=== PATIENT | female | born 1965 | race Caucasian/White ===

== ENCOUNTER 2021-02-09 17:02 | Inpatient (IN) | payer OTHER ==
[~2021-02-09] VITALS: Ht 155 cm; Wt 76.5 kg
[2021-02-09 18:03] LABS: HEMOGLOBIN 10.4 gm/dl (12.3-15.3); RED BLOOD COUNT 2.95 M/UL (4.00-5.10); WHITE BLOOD COUNT 9.2 K/UL (4.5-11.0)
[2021-02-09 18:33] LABS: BUN/CREATININE RATIO 11 (0-10)
[2021-02-09 21:10] LABS: BODY FLUID SOURCE PERITONEAL
[2021-02-09 21:11] LABS: MONONUCLEAR CELLS 64.6 (75-100); POLYMORPHONUCLEAR % 35.4 (0-25); RBC (AUTOMATED) 1700 (0-100000); WBC (AUTOMATED) 48 (0-500)
[2021-02-09 21:32] LABS: TOTAL PROTEIN, BODY FLUID 1.2 gm/dL
[2021-02-09 21:33] LABS: LDH, BODY FLUID 43 U/L
[2021-02-10 04:07] LABS: WHITE BLOOD COUNT 7.3 K/UL (4.5-11.0)
[2021-02-10 04:08] LABS: HEMOGLOBIN 8.2 gm/dl (12.3-15.3); RED BLOOD COUNT 2.37 M/UL (4.00-5.10)
[2021-02-10 09:05] LABS: ACINETOBACTER BAUMANNII Not Detected (Negative); CANDIDA ALBICANS Not Detected (Negative); CANDIDA KRUSEI Not Detected (Negative); CANDIDA TROPICALIS Not Detected (Negative); ENTEROCOCCUS Not Detected (Negative); HAEMOPHILUS INFLUENZAE Not Detected (Negative); KLEBSIELLA OXYTOCA Not Detected (Negative); KLEBSIELLA PNEUMONIAE Not Detected (Negative); KPC-CARBAPENEM-RESISTANCE GENE Not Detected (Negative); PROTEUS Not Detected (Negative); PSEUDOMONAS AERUGINOSA Not Detected (Negative); SERRATIA MARCESANS Not Detected (Negative); STAPHYLOCOCCUS Not Detected (Negative); STAPHYLOCOCCUS AUREUS Not Detected (Negative); STREP AGALACTIAE (GROUP B) Not Detected (Negative); STREP PYOGENES (GROUP A) Not Detected (Negative); STREPTOCOCCUS Not Detected (Negative); mecA (METHICILLIN RESIST GENE Not Detected (Negative); vanA/B (VANCOMYCIN RESIST GENE Not Detected (Negative)
[2021-02-10 10:31] LABS: ESCHERICHIA COLI DETECTED (Negative)
[2021-02-10] MEDS ORDERED: CYMBALTA60 MG PO (10:40)
[2021-02-10] MEDS ORDERED: CETIRIZINE HCL10 MG PO (10:40)
[2021-02-10] MEDS ORDERED: ASPIRIN EC325 MG PO (10:40)
[2021-02-10] MEDS ORDERED: SYNTHROID75 MCG PO (10:41)
[2021-02-10] MEDS ORDERED: LANSOPRAZOLE30 MG PO (10:41)
[2021-02-10] MEDS ORDERED: LISINOPRIL20 MG PO (10:41)
[2021-02-10] MEDS ORDERED: TOPROL XL25 MG PO (10:42)
[2021-02-10] MEDS ORDERED: ZOFRAN ODT 4 MG4 MG PO (10:42)
[2021-02-10] MEDS ORDERED: VENTOLIN HFA 66.7 GM INH (10:43)
[2021-02-10] MEDS ORDERED: BENADRYL 25MG C25 MG PO (10:54)
[2021-02-11 04:27] LABS: HEMOGLOBIN 7.3 gm/dl (12.3-15.3); WHITE BLOOD COUNT 7.9 K/UL (4.5-11.0)
[2021-02-11 04:40] LABS: RED BLOOD COUNT 2.1 M/UL (4.00-5.10)
[2021-02-12 03:30] LABS: HEMOGLOBIN 7.5 gm/dl (12.3-15.3); RED BLOOD COUNT 2.2 M/UL (4.00-5.10); WHITE BLOOD COUNT 7.9 K/UL (4.5-11.0)
[2021-02-13 03:48] LABS: ACINETOBACTER BAUMANNII Not Detected (Negative); CANDIDA ALBICANS Not Detected (Negative); CANDIDA KRUSEI Not Detected (Negative); CANDIDA TROPICALIS Not Detected (Negative); ENTEROCOCCUS Not Detected (Negative); ESCHERICHIA COLI Not Detected (Negative); HAEMOPHILUS INFLUENZAE Not Detected (Negative); KLEBSIELLA OXYTOCA Not Detected (Negative); KLEBSIELLA PNEUMONIAE Not Detected (Negative); KPC-CARBAPENEM-RESISTANCE GENE Not Detected (Negative); PROTEUS Not Detected (Negative); PSEUDOMONAS AERUGINOSA Not Detected (Negative); SERRATIA MARCESANS Not Detected (Negative); STAPHYLOCOCCUS Not Detected (Negative); STAPHYLOCOCCUS AUREUS Not Detected (Negative); STREP AGALACTIAE (GROUP B) Not Detected (Negative); STREP PYOGENES (GROUP A) Not Detected (Negative); STREPTOCOCCUS Not Detected (Negative); mecA (METHICILLIN RESIST GENE Not Detected (Negative); vanA/B (VANCOMYCIN RESIST GENE Not Detected (Negative)
[2021-02-13 05:07] LABS: HEMOGLOBIN 7.3 gm/dl (12.3-15.3); RED BLOOD COUNT 2.09 M/UL (4.00-5.10); WHITE BLOOD COUNT 6.8 K/UL (4.5-11.0)
[2021-02-14 04:31] LABS: HEMOGLOBIN 7.2 gm/dl (12.3-15.3); RED BLOOD COUNT 2.08 M/UL (4.00-5.10)
--- NOTE | 2021-02-14 17:51 | NUR ---
PATIENTS HAIR NOTED TO BE SEVERELY MATTED. UNABLE TO DETANGLE HAIR X3 DAYS. PATIENT STATED IT WAS HURTING HER HEAD AND IT WAS OKAY TO CUT HER HAIR. EMERGENCY CONTACT GERMAINE CRYSTAL (MOTHER) CONTACTED AND ISSUE WAS DISCUSSED WITH HER. MOTHER STATED SHE KNEW IT WAS BAD AND SHE HAD TRIED TO GET HER TO TAKE CARE OF HER HAIR AT HOME. SHE STATED IT WAS OK TO CUT HAIR. SECOND NURSE S[place] VERIFIED. SISTER IN LAW SIDNEY CONTACTED PER MOTHERS REQUEST TO SEE IF SHE COULD COME CUT HAIR, UNABLE TO COME BUT STATED SHE KNEW HER HAIR WAS IN BAD SHAPE THAT SHE HADNT TOOK CARE OF HERSELF OR TOOK A SHOWER IN MONTHS. DISCUSSED WITH PATIENT PRIOR TO CUTTING HAIR AND CONTINUED TO AGREE TO HAVE IT CUT.
[2021-02-15 04:11] LABS: HEMOGLOBIN 7.8 gm/dl (12.3-15.3); RED BLOOD COUNT 2.24 M/UL (4.00-5.10)
[2021-02-16 05:32] LABS: HEMOGLOBIN 7.9 gm/dl (12.3-15.3); RED BLOOD COUNT 2.32 M/UL (4.00-5.10); WHITE BLOOD COUNT 7.3 K/UL (4.5-11.0)
[2021-02-16 10:14] LABS: CREATININE, URINE 83.6 mg/dL (Not Estab.)
[2021-02-18 04:12] LABS: HEMOGLOBIN 7.7 gm/dl (12.3-15.3); RED BLOOD COUNT 2.2 M/UL (4.00-5.10); WHITE BLOOD COUNT 6.9 K/UL (4.5-11.0)
[2021-02-19 06:00] LABS: HEMOGLOBIN 7.6 gm/dl (12.3-15.3); RED BLOOD COUNT 2.19 M/UL (4.00-5.10); WHITE BLOOD COUNT 7.1 K/UL (4.5-11.0)
[2021-02-21 05:57] LABS: HEMOGLOBIN 7.7 gm/dl (12.3-15.3); RED BLOOD COUNT 2.16 M/UL (4.00-5.10)
[2021-02-22 06:36] LABS: HEMOGLOBIN 7.9 gm/dl (12.3-15.3); RED BLOOD COUNT 2.2 M/UL (4.00-5.10)
[2021-02-22 06:37] LABS: WHITE BLOOD COUNT 11.4 K/UL (4.5-11.0)
[2021-02-23 05:56] LABS: WHITE BLOOD COUNT 9.9 K/UL (4.5-11.0)
[2021-02-23 06:07] LABS: HEMOGLOBIN 6.9 gm/dl (12.3-15.3); RED BLOOD COUNT 1.94 M/UL (4.00-5.10)
[2021-02-23 15:30] LABS: HEMOGLOBIN 6.6 gm/dl (12.3-15.3)
--- NOTE | 2021-02-23 15:33 | NUR ---
MADE AWARE OF PATIENTS HGB OF 6.6. HE GAVE A VERBAL ORDER FOR 1 UNIT OF PRBC'S AT THIS TIME.
[2021-02-24 04:51] LABS: HEMOGLOBIN 7.7 gm/dl (12.3-15.3); WHITE BLOOD COUNT 8.9 K/UL (4.5-11.0)
[2021-02-24 05:03] LABS: RED BLOOD COUNT 2.2 M/UL (4.00-5.10)
[2021-02-25 05:47] LABS: HEMOGLOBIN 7.2 gm/dl (12.3-15.3); RED BLOOD COUNT 2.03 M/UL (4.00-5.10); WHITE BLOOD COUNT 7.9 K/UL (4.5-11.0)
[2021-02-26 04:07] LABS: RED BLOOD COUNT 2.01 M/UL (4.00-5.10); WHITE BLOOD COUNT 7.6 K/UL (4.5-11.0)
[2021-02-27 04:18] LABS: HEMOGLOBIN 7.5 gm/dl (12.3-15.3); WHITE BLOOD COUNT 7.7 K/UL (4.5-11.0)
[2021-02-27 04:32] LABS: RED BLOOD COUNT 2.33 M/UL (4.00-5.10)
[2021-02-28 04:31] LABS: HEMOGLOBIN 7.9 gm/dl (12.3-15.3); RED BLOOD COUNT 2.35 M/UL (4.00-5.10); WHITE BLOOD COUNT 9.2 K/UL (4.5-11.0)
[2021-03-01 14:21] LABS: HEMOGLOBIN 8.1 gm/dl (12.3-15.3); RED BLOOD COUNT 2.37 M/UL (4.00-5.10)
[2021-03-01 14:27] LABS: WHITE BLOOD COUNT 5.3 K/UL (4.5-11.0)
[2021-03-01 14:44] LABS: BUN/CREATININE RATIO 22 (0-10)
[2021-03-02 03:47] LABS: RED BLOOD COUNT 2.32 M/UL (4.00-5.10); WHITE BLOOD COUNT 4.9 K/UL (4.5-11.0)
[2021-03-07 04:03] LABS: HEMOGLOBIN 8.2 gm/dl (12.3-15.3); RED BLOOD COUNT 2.41 M/UL (4.00-5.10); WHITE BLOOD COUNT 7.1 K/UL (4.5-11.0)
--- NOTE | 2021-03-07 23:53 | NUR ---
REPORT RECIEVED FROM RIANNA REDD RN AT 2310. PT WATCHING TV STATES SHE HAS NOT NEEDS AT THIS TIME.
[2021-03-08] MEDS ORDERED: TOPROL XL25 MG PO (11:56)
[2021-03-08] MEDS ORDERED: VENTOLIN HFA 66.7 GM INH (11:56)
[2021-03-08] MEDS ORDERED: DULOXETINE HCL30 MG PO (11:56)
[2021-03-08] MEDS ORDERED: SYNTHROID75 MCG PO (11:56)
[2021-03-08] MEDS ORDERED: ALDACTONE100 MG PO (11:56)
[2021-03-08] MEDS ORDERED: XIFAXAN 550 MG550 MG PO (11:56)
[2021-03-08] MEDS ORDERED: CHRONULAC20 GM/30 M PO (11:56)
[2021-03-08] MEDS ORDERED: LANSOPRAZOLE30 MG PO (11:56)
[2021-03-08] MEDS ORDERED: FUROSEMIDE40 MG PO (11:56)
--- NOTE | 2021-03-08 15:39 | NUR ---
RN ASSISTED PATIENT TO SIDE OF BED WITHOUT OXYGEN, O2 SATURATION NOTED TO HAVE DROPPED TO 87% ON ROOM AIR. OXYGEN REAPPLIED AT 2 L/MIN NASAL CANNULA, OXYGEN SATURATION INCREASED ABOVE 90%. NO S/SX OF PAIN OR DISTRESS. CIRCULATION CREW LEADER DEIRDRE MADE AWARE.
--- NOTE | 2021-03-08 18:56 | NUR ---
RN CALLED REPORT TO RAJAT AT [facility].
== END 2021-03-08 22:00 | disposition home health service (06) | DRG 432 ==
LOC: ER1 17:02 → MED SURG 4 22:08 → CDU 22:08 → MED SURG 4 02-10 00:56
PROVIDERS: Emergency Medicine; Family Medicine; Hospitalist; Internal Medicine; Internal Medicine Infectious Disease; Internal Medicine Nephrology; ADMIT Internal Medicine
PROC: 0W9G3ZX Drainage of Peritoneal Cavity, Percutaneous Approach, Diagnostic (ICD-10-PCS; principal; 2021-02-09)
PROC: BW40ZZZ Ultrasonography of Abdomen (ICD-10-PCS; 2021-02-09)
PROC: B24BZZ4 Ultrasonography of Heart with Aorta, Transesophageal (ICD-10-PCS; 2021-02-10)
PROC: 30233N1 Transfusion of Nonautologous Red Blood Cells into Peripheral Vein, Percutaneous Approach (ICD-10-PCS; 2021-02-26)
DX: K70.31 Alcoholic cirrhosis of liver with ascites (principal); K76.7 Hepatorenal syndrome; K72.00 Acute and subacute hepatic failure without coma; J96.01 Acute respiratory failure with hypoxia; G93.41 Metabolic encephalopathy; N17.9 Acute kidney failure, unspecified; Z68.41 Body mass index [BMI] 40.0-44.9, adult; D68.9 Coagulation defect, unspecified; D61.818 Other pancytopenia; I67.4 Hypertensive encephalopathy; Z16.12 Extended spectrum beta lactamase (ESBL) resistance; B96.20 Unspecified Escherichia coli [E. coli] as the cause of diseases classified elsewhere; Z20.822 Contact with and (suspected) exposure to COVID-19; I27.20 Pulmonary hypertension, unspecified; E66.9 Obesity, unspecified; J44.9 Chronic obstructive pulmonary disease, unspecified; F10.10 Alcohol abuse, uncomplicated; F17.210 Nicotine dependence, cigarettes, uncomplicated; E87.6 Hypokalemia; N30.90 Cystitis, unspecified without hematuria; E03.9 Hypothyroidism, unspecified; R53.81 Other malaise; I12.9 Hypertensive chronic kidney disease with stage 1 through stage 4 chronic kidney disease, or unspecified chronic kidney disease; N18.30 Chronic kidney disease, stage 3 unspecified; E88.09 Other disorders of plasma-protein metabolism, not elsewhere classified; D69.6 Thrombocytopenia, unspecified; D63.1 Anemia in chronic kidney disease; Z91.14 Patient's other noncompliance with medication regimen; Z90.710 Acquired absence of both cervix and uterus; Z83.3 Family history of diabetes mellitus; Z79.82 Long term (current) use of aspirin; Z88.8 Allergy status to other drugs, medicaments and biological substances
CPT/HCPCS: ECHO; 36415; 36430; 71045; 80048; 80053; 80202; 81001; 82043; 82140; 82550; 82553; 82570; 82607; 82728; 82746; 82945; 83540; 83550; 83605; 83615; 83690; 83735; 83874; 83880; 84100; 84156; 84157; 84439; 84443; 84484; 85014; 85018; 85025; 85027; 85610; 85730; 86850; 86900; 86901; 86920; 87040; 87070; 87077; 87086; 87150; 87186; 87205; 89051; 93005; 93306; 94640; 94664; 94760; 96374; 97110; 97110-GP-CQ; 97161; 97166; 97530; 97530-GP-CQ; 99285; C1729; G0378; J0692; J0696; J1205; J1335; J1650; J1940; J2354; J2920; J3370; J7070; P9016; P9047; U0002